=== PATIENT | female | born 1940 | race Caucasian/White ===

== ENCOUNTER 2018-07-25 16:04 | Inpatient (IN) | payer OTHER, MEDICARE ==
[2018-07-25] MEDS ORDERED: ACETAMINOPHEN 500 MG TAB ONE (16:23)
[2018-07-25] MEDS ORDERED: ACETAMINOPHEN 500 MG TAB PO ONE (16:26)
--- NOTE | 2018-07-25 17:12 | EDPHY ---
H & P Time Seen by Provider: 07/25/18 17:02 HPI/ROS: CHIEF COMPLAINT: Cough, shortness of breath, fever HISTORY OF PRESENT ILLNESS: The patient is a 77-year-old female who presents emergency department with multiple complaints including cough, body aches, fever and shortness of breath. Her symptoms started 5 days ago when she was in [place]. She went to urgent care. She was treated with prednisone, benzonatate, and guaifenesin. Patient's symptoms have continued to worsen. She has a productive cough of yellow sputum. She is mildly short of breath. She has diffuse body aches. She is feeling extremely fatigued. She went to urgent care prior to arrival to the emergency department. She was noted to have a temperature at 102 degrees and a low O2 saturation of 85%. REVIEW OF SYSTEMS: 10 systems were reveiwed and are negative with the exception of the elements mentioned in the history of present illness. Past Medical/Surgical History: Includes IBS, sarcoidosis, AST Past surgical history: ASD repair Social history: The patient does not smoke Smoking Status: Never smoked Physical Exam: Vitals noted. Temperature 39.1 degrees. 144/81. 107. 16, 88% on room air GENERAL: Intermittent coughing, alert. HEENT: Eyes normal to inspection, normal pharynx, no signs of dehydration. NECK: Normal, supple. RESPIRATORY: Coarse breath sounds and rales right greater than left. No wheezing. CVS: Tachycardia with regular rhythm, no rubs, murmurs, or gallops. ABDOMEN: Soft, nontender, nondistended, no organomegaly. BACK: Normal to inspection, no CVA tenderness. SKIN: Normal color, no rash, warm, dry. No pallor. EXTREMITIES: No pedal edema, no calf tenderness, no Homans sign or cords, no joint swelling. NEURO/PSYCH: Alert and oriented, normal mood and affect, normal motor sensory exam. No obvious cranial nerve deficit. Constitutional: Initial Vital Signs Temperature (C) 39.1 C H 07/25/18 16:22 Heart Rate 107 H 07/25/18 16:22 Respiratory Rate 16 07/25/18 16:22 Blood Pressure 144/81 H 07/25/18 16:22 O2 Sat (%) 88 L 07/25/18 16:22 O2 Delivery Mode Room Air Allergies/Adverse Reactions: Sulfa (Sulfonamide Antibiotics) Allergy (Intermediate, Verified 07/25/18 16:22) Hives Home Medications: Medication Instructions Recorded Aspirin [Aspirin 81mg (OTC)] 81 mg PO DAILY 12/29/15 L.acidoph,Paracasei, B.lactis 1 each PO 12/29/15 [Probiotic] Loperamide HCl [Imodium] 4 mg PO ONCE 12/29/15 Medical Decision Making - Diagnostics Imaging Results: Imaging Impressions Chest X-Ray 07/25/18 17:15 Impression: Left lower lobe pneumonia versus aspiration. ED Course/Re-evaluation: In the emergency department I discussed possible etiologies with the patient. I answered all her questions. IV was placed. Laboratory studies were obtained. Patient was given normal saline 1L IV for hydration. Patient white count is normal. Chemistry panel is notable for low sodium 131. Low potassium of 3.3. Patient's lactic acid was 1.0. Flu a positive. Chest x-ray: Please refer the dictated report. Left lower lobe infiltrate. I discussed the case with Dr. Thomas from the hospitalist service. He will admit the patient. Patient was given Rocephin and azithromycin. I discussed case with the patient. I answered all her questions. Differential Diagnosis: My differential includes but is not limited to influenza, viral illness, bronchitis, pneumonia, bacteremia, sepsis - Data Points Laboratory Results: Laboratory Results 07/25/18 16:45 07/25/18 16:45 07/25/18 07/25/18 07/25/18 18:05 16:45 16:45 WBC 7.49 10^3/uL 10^3/uL (3.80-9.50) RBC 4.34 10^6/uL 10^6/uL (4.18-5.33) Hgb 13.8 g/dL g/dL (12.6-16.3) Hct 39.8 % % (38.0-47.0) MCV 91.7 fL fL (81.5-99.8) MCH 31.8 pg pg (27.9-34.1) MCHC 34.7 g/dL g/dL (32.4-36.7) RDW 13.4 % % (11.5-15.2) Plt Count 208 10^3/uL 10^3/uL (150-400) MPV 10.5 fL fL (8.7-11.7) Neut % (Auto) 82.7 % H % (39.3-74.2) Lymph % (Auto) 7.5 % L % (15.0-45.0) [place] % (Auto) 9.3 % % (4.5-13.0) Eos % (Auto) 0.0 % L % (0.6-7.6) Baso % (Auto) 0.1 % L % (0.3-1.7) Nucleat RBC Rel Count 0.0 % % (0.0-0.2) Absolute Neuts (auto) 6.19 10^3/uL 10^3/uL (1.70-6.50) Absolute Lymphs (auto) 0.56 10^3/uL L 10^3/uL (1.00-3.00) Absolute Monos (auto) 0.70 10^3/uL 10^3/uL (0.30-0.80) Absolute Eos (auto) 0.00 10^3/uL L 10^3/uL (0.03-0.40) Absolute Basos (auto) 0.01 10^3/uL L 10^3/uL (0.02-0.10) Absolute Nucleated RBC 0.00 10^3/uL 10^3/uL (0-0.01) Immature Gran % 0.4 % % (0.0-1.1) Immature Gran # 0.03 10^3/uL 10^3/uL (0.00-0.10) RBC/WBC/PLT Morphology TNP Platelet Estimate TNP VBG Lactic Acid 1.0 mmol/L mmol/L (0.7-2.1) Sodium 131 mEq/L L mEq/L (135-145) Potassium 3.3 mEq/L L mEq/L (3.5-5.2) Chloride 99 mEq/L mEq/L (97-110) Carbon Dioxide 23 mEq/l mEq/l (22-31) Anion Gap 9 mEq/L mEq/L (6-14) BUN 13 mg/dL mg/dL (7-23) Creatinine 0.6 mg/dL mg/dL (0.6-1.0) Estimated GFR > 60 Glucose 115 mg/dL H mg/dL (70-100) Calcium 8.7 mg/dL mg/dL (8.5-10.4) Total Bilirubin 1.0 mg/dL mg/dL (0.1-1.4) Nasal Influenza A PCR Nasal Influenza B PCR 07/25/18 16:45 WBC RBC Hgb Hct MCV MCH MCHC RDW Plt Count MPV Neut % (Auto) Lymph % (Auto) [place] % (Auto) Eos % (Auto) Baso % (Auto) Nucleat RBC Rel Count Absolute Neuts (auto) Absolute Lymphs (auto) Absolute Monos (auto) Absolute Eos (auto) Absolute Basos (auto) Absolute Nucleated RBC Immature Gran % Immature Gran # RBC/WBC/PLT Morphology Platelet Estimate VBG Lactic Acid Sodium Potassium Chloride Carbon Dioxide Anion Gap BUN Creatinine Estimated GFR Glucose Calcium Total Bilirubin Nasal Influenza A PCR FLU A DETECTED H (NEGATIVE) Nasal Influenza B PCR NEGATIVE FOR FLU B (NEGATIVE) Medications Given: Discontinued Medications Acetaminophen (Tylenol) 1,000 mg PO EDNOW ONE Stop: 07/25/18 16:27 Last Admin: 07/25/18 16:28 Dose: 1,000 mg Sodium Chloride (Ns) 1,000 mls @ 0 mls/hr IV ONCE ONE PRN Reason: Wide Open Stop: 07/25/18 18:09 Last Admin: 07/25/18 18:16 Dose: 1,000 mls Ibuprofen (Motrin) 600 mg PO EDNOW ONE Stop: 07/25/18 18:09 Last Admin: 07/25/18 18:16 Dose: 600 mg Departure - Departure Disposition: [facility] Inpatient Acute Clinical Impression: Left lower lobe consolidation, Influenza A Condition: Good
[2018-07-25 17:33] LABS: PLATELET COUNT 208 10^3/uL (150-400)
[2018-07-25] MEDS ORDERED: IBUPROFEN 600 MG TAB PO ONE (18:08)
[2018-07-25] MEDS ORDERED: NS 1,000 ML IV ONE (18:08)
[2018-07-25] MEDS ORDERED: AZITHROMYCIN IV 500 MG in D5W 250 ML IV ONE (18:22)
[2018-07-25] MEDS ORDERED: POTASSIUM CL 20 MEQ/15 ML UDCUP PO ONE (18:26)
--- NOTE | 2018-07-25 18:44 | PDGENHP ---
History and Physical - Chief Complaint cough/ shortness of breath - History of Present Illness Sandy Morrow is a 77-year-old female with past medical history of sarcoidosis and irritable bowel disease who presented to the ER with complaints of 5 days of shortness of breath and cough. She says that she got back from a trip to [place] today and felt weak dizzy and short of breath. About 5 days ago she thought she was getting a cold. Her symptoms have included a cough productive of white sputum, mild fevers and chills, and pleuritic chest pain. Her symptoms worsened until today she felt bad enough that she needed to go to an urgent care. She went to a local urgent care where she was noted to be 85% on room air and have a fever of 102.5. She was told to come to the emergency room for further evaluation. She denied any sick contacts. She denied any nausea vomiting new lower extremity edema diarrhea dysuria dizziness headaches or other symptoms. History Information - Allergies/Home Medication List Allergies/Adverse Reactions: Sulfa (Sulfonamide Antibiotics) Allergy (Intermediate, Verified 07/25/18 16:22) Hives Home Medications: Aspirin [Aspirin 81mg (OTC)] 81 mg PO DAILY 12/29/15 [Last Taken Unknown] L.acidoph,Paracasei, B.lactis [Probiotic] 1 each PO 12/29/15 [Last Taken Unknown ] Loperamide HCl [Imodium] 4 mg PO ONCE 12/29/15 [Last Taken Unknown] I have personally reviewed and updated: family history, medical history, social history, surgical history - Past Medical History Additional medical history: ibs - Surgical History Reports: cholecystectomy, hysterectomy - Family History Positive for: non-pertinent - Social History Smoking Status: Never smoked Alcohol Use: None Drug Use: None Review of Systems Review of Systems: ROS: 10pt was reviewed & negative except for what was stated in HPI & below Physical Exam Physical Exam: Temp Pulse Resp BP Pulse Ox 37.3 C 99 16 104/60 90 L 07/25/18 18:17 07/25/18 18:17 07/25/18 18:17 07/25/18 18:17 07/25/18 18:17 Constitutional: no apparent distress, appears nourished, not in pain Eyes: PERRL, anicteric sclera, EOMI Ears, Nose, Mouth, Throat: moist mucous membranes, hearing normal, ears appear normal, no oral mucosal ulcers Cardiovascular: regular rate and rhythym, no murmur, rub, or gallop, No edema Respiratory: reduced air movement, expiratory wheeze, inspiratory crackles Gastrointestinal: normoactive bowel sounds, soft, non-tender abdomen, no palpable masses Genitourinary: no bladder fullness, no bladder tenderness Skin: warm, normal color, no rashes or abrasions, no fluctuance, no induration, No mottled Musculoskeletal: full muscle strength, no muscle tenderness, normal joint ROM, no joint effusions Neurologic: AAOx3, CN II-XII Intact Psychiatric: interacting appropriately, not anxious, not encephalopathic, thought process linear Lymph, Heme, Immunologic: no cervical LAD, no supraclavicular LAD Lab Data & Imaging Review 07/25/18 16:45 07/25/18 16:45 WBC 7.49 10^3/uL (3.80-9.50) 07/25/18 16:45 RBC 4.34 10^6/uL (4.18-5.33) 07/25/18 16:45 Hgb 13.8 g/dL (12.6-16.3) 07/25/18 16:45 Hct 39.8 % (38.0-47.0) 07/25/18 16:45 MCV 91.7 fL (81.5-99.8) 07/25/18 16:45 MCH 31.8 pg (27.9-34.1) 07/25/18 16:45 MCHC 34.7 g/dL (32.4-36.7) 07/25/18 16:45 RDW 13.4 % (11.5-15.2) 07/25/18 16:45 Plt Count 208 10^3/uL (150-400) 07/25/18 16:45 MPV 10.5 fL (8.7-11.7) 07/25/18 16:45 Neut % (Auto) 82.7 % (39.3-74.2) H 07/25/18 16:45 Lymph % (Auto) 7.5 % (15.0-45.0) L 07/25/18 16:45 [place] % (Auto) 9.3 % (4.5-13.0) 07/25/18 16:45 Eos % (Auto) 0.0 % (0.6-7.6) L 07/25/18 16:45 Baso % (Auto) 0.1 % (0.3-1.7) L 07/25/18 16:45 Nucleat RBC Rel Count 0.0 % (0.0-0.2) 07/25/18 16:45 Absolute Neuts (auto) 6.19 10^3/uL (1.70-6.50) 07/25/18 16:45 Absolute Lymphs (auto) 0.56 10^3/uL (1.00-3.00) L 07/25/18 16:45 Absolute Monos (auto) 0.70 10^3/uL (0.30-0.80) 07/25/18 16:45 Absolute Eos (auto) 0.00 10^3/uL (0.03-0.40) L 07/25/18 16:45 Absolute Basos (auto) 0.01 10^3/uL (0.02-0.10) L 07/25/18 16:45 Absolute Nucleated RBC 0.00 10^3/uL (0-0.01) 07/25/18 16:45 Immature Gran % 0.4 % (0.0-1.1) 07/25/18 16:45 Immature Gran # 0.03 10^3/uL (0.00-0.10) 07/25/18 16:45 RBC/WBC/PLT Morphology TNP 07/25/18 16:45 Platelet Estimate TNP 07/25/18 16:45 VBG Lactic Acid 1.0 mmol/L (0.7-2.1) 07/25/18 18:05 Sodium 131 mEq/L (135-145) L 07/25/18 16:45 Potassium 3.3 mEq/L (3.5-5.2) L 07/25/18 16:45 Chloride 99 mEq/L (97-110) 07/25/18 16:45 Carbon Dioxide 23 mEq/l (22-31) 07/25/18 16:45 Anion Gap 9 mEq/L (6-14) 07/25/18 16:45 BUN 13 mg/dL (7-23) 07/25/18 16:45 Creatinine 0.6 mg/dL (0.6-1.0) 07/25/18 16:45 Estimated GFR > 60 07/25/18 16:45 Glucose 115 mg/dL (70-100) H 07/25/18 16:45 Calcium 8.7 mg/dL (8.5-10.4) 07/25/18 16:45 Total Bilirubin 1.0 mg/dL (0.1-1.4) 07/25/18 16:45 Nasal Influenza A PCR FLU A DETECTED (NEGATIVE) H 07/25/18 16:45 Nasal Influenza B PCR NEGATIVE FOR FLU B (NEGATIVE) 07/25/18 16:45 Assessment & Plan Assessment: Acute hypoxemic respiratory failure- patient has no history of needing oxygen. Hypoxic to 85% on room air on arrival. Has crackles in left lung and wheezes on expiration. Flu swab positive. Chest x-ray with developing left lung infiltrate. Hypoxemia likely secondary to flu pneumonia in setting of patient with sarcoidosis. Treat underlying pneumonia Oxygen as needed Nebulizers Pneumonia- chest x-ray reviewed shows possible new left lower infiltrate. she is influenza A positive. No leukocytosis but does have a mildly elevated procalcitonin. I discussed the case with the emergency room physician. Patient was given Rocephin and azithromycin in the ER. Tamiflu 75 mg twice daily Oxygen p.r.n. Coco Chow for cough Blood cultures Legionella urinary antigen Strep pneumonia urinary antigen Influenza- examination notable for crackles in left lower lung. Influenza swab positive for flu A Tamiflu 75 twice daily Contact precautions Hyponatremia- patient appears hypovolemic. Suspect hypovolemic hyponatremia. Will give intravenous saline and recheck sodium in the morning Hypokalemia- likely from poor oral intake. Replacement protocol ordered Sarcoidosis- on nothing for this. Does sound wheezy on inspiration. Will give DuoNeb nebulizers Irritable bowel syndrome- p.r.n. Imodium Prophylaxis-SCDs and Lovenox Fluids-intravenous saline Electrolytes-a dressing hyponatremia and hypokalemia Nutrition-regular diet Code status-patient wishes to be full code Disposition-observation for flu pneumonia
[2018-07-25] MEDS ORDERED: PROTOCOL MAGNESIUM 1 DOSE IV PRN (18:52)
[2018-07-25] MEDS ORDERED: ONDANSETRON DISINTEGRATING 4 MG TAB PO PRN (18:52)
[2018-07-25] MEDS ORDERED: PROTOCOL POTASSIUM 1 DOSE MISC PRN (18:52)
[2018-07-25] MEDS ORDERED: ACETAMINOPHEN 325 MG TAB PO PRN (18:52)
[2018-07-25] MEDS ORDERED: PROTOCOL K PHOSPHATE 1 DOSE IV PRN (18:52)
[2018-07-25] MEDS ORDERED: ONDANSETRON 4 MG/2 ML VIAL IVP PRN (18:52)
[2018-07-25] MEDS ORDERED: BENZONATATE 100 MG CAP PO PRN (18:56)
[2018-07-25] MEDS ORDERED: BENZONATATE 100 MG CAP PO ONE (19:39)
[2018-07-25] MEDS: OSELTAMIVIR PHOSPHATE 75 MG CAP PO SCH (20:17)
[2018-07-25] MEDS ORDERED: IPRATROPIUM/ALBUTEROL 3 ML DEYVIAL IH SCH (21:00)
[2018-07-25] MEDS: NS 1,000 ML IV SCH (22:26)
[2018-07-26] MEDS ORDERED: GUAIFENESIN/DM 10 ML UDCUP PO PRN ×2 (04:21→05:36)
[2018-07-26 05:26] LABS: PLATELET COUNT 152 10^3/uL (150-400)
[2018-07-26] MEDS ORDERED: PANTOPRAZOLE SODIUM 40 MG VIAL IVP ONE ×2 (05:34→08:00)
[2018-07-26] MEDS ORDERED: IPRATROPIUM/ALBUTEROL 3 ML DEYVIAL IH PRN (05:36)
[2018-07-26] MEDS ORDERED: MAGNESIUM SULF 1 GM/DEXTROSE 100 ML IV ONE (07:37)
[2018-07-26] MEDS: OSELTAMIVIR PHOSPHATE 75 MG CAP PO SCH ×2 (09:01→17:42)
[2018-07-26] MEDS: ENOXAPARIN 40 MG/0.4 ML SYR SC SCH (09:01)
--- NOTE | 2018-07-26 10:29 | ASMTCMCOM ---
CM Note CM Note Notes: Chart reviewed for discharge planning purposes. 77 year old female admitted via ed with complaints of fever and malaise, normally independent. Has Influenza A and pneumonia. CM to follow for needs. Plan: TBD Date Signed: 07/26/2018 10:29 AM Electronically Signed By:Shaye Saab RN
[2018-07-26] MEDS ORDERED: ZOLPIDEM TARTRATE 5 MG TAB PO PRN (13:33)
--- NOTE | 2018-07-26 13:36 | HOSPPROG ---
Hospitalist Progress Note Assessment/Plan: Acute hypoxemic respiratory failure * better today Pneumonia * procalcitonin only borderline up * most likely fro flu * hold on abx Influenza * tamiflu Hyponatremia- patient appears hypovolemic. Suspect hypovolemic hyponatremia. Will give intravenous saline and recheck sodium in the morning Hypokalemia- likely from poor oral intake. Replacement protocol ordered Sarcoidosis Irritable bowel syndrome- p.r.n. Imodium Prophylaxis-SCDs and Lovenox Code status-patient wishes to be full code Disposition-inpatient Subjective: feels a little better but coughing a lot Objective: Vital Signs Temp Pulse Resp BP Pulse Ox 37.1 C 88 16 110/68 93 07/26/18 12:00 07/26/18 12:00 07/26/18 12:00 07/26/18 12:00 07/26/18 12:00 Laboratory Results 07/26/18 04:40 07/26/18 04:40 07/25/18 07/26/18 07/27/18 05:59 05:59 05:59 Intake Total 2139 Balance 2139 - Physical Exam Constitutional: no apparent distress, appears nourished, not in pain Eyes: anicteric sclera, EOMI Ears, Nose, Mouth, Throat: moist mucous membranes Cardiovascular: regular rate and rhythym Respiratory: rhonchi (madelin right) Neurologic: AAOx3 Psychiatric: interacting appropriately, not anxious, not encephalopathic, thought process linear ICD10 Worksheet Patient Problems: Problems Problem Status Onset Influenza A Acute Left lower lobe consolidation Acute
[2018-07-26] MEDS: guaiFENesin/CODEINE PHOS 10 ML UDCUP PO PRN ×2 (14:19→20:49)
--- NOTE | 2018-07-26 16:12 | PDMN ---
Medical Necessity Medical necessity: [facility] [place] M282 CAP: 77 yo w/ SOB and cough in acute hypoxemic resp fx w/ no hx needing O2, 85% RA. +Infuenza. Dx w/ pneumonia. Initially OBS for workup but cont needing O2, cont need for IV fluids as pt hypovolemic, BC pending. Pt tachycardic this afternoon 110. Meets [facility] [place] IP criteria for CAP for new hypoxemia w/ O2 needs, persistent dehydration requiring ongoing IV fluids. Hx sarcoidosis and IBS. Change to IP status 07/26/18@1336 per MD order
[2018-07-26] MEDS: NS 1,000 ML IV SCH (17:43)
[2018-07-26] MEDS: guaiFENesin 600 MG TAB.ER PO SCH (20:49)
[2018-07-27] MEDS: guaiFENesin 600 MG TAB.ER PO SCH ×2 (08:30→21:13)
[2018-07-27] MEDS: ENOXAPARIN 40 MG/0.4 ML SYR SC SCH (08:30)
[2018-07-27] MEDS: OSELTAMIVIR PHOSPHATE 75 MG CAP PO SCH ×2 (08:30→18:06)
--- NOTE | 2018-07-27 08:51 | HOSPPROG ---
Hospitalist Progress Note Assessment/Plan: Sandy Morrow is a 77-year-old female with past medical history of sarcoidosis and irritable bowel disease who presented to the ER with complaints of 5 days of shortness of breath and cough. First encounter, chart reviewed. *Acute hypoxemic respiratory failure * on room air *Pneumonia (likely viral) * procalcitonin only borderline up * most likely from flu * hold on abx *Influenza * Tamiflu *Hyponatremia- hypovolemic. * resolved *Hypokalemia * resolved *Sarcoidosis *Irritable bowel syndrome- p.r.n. Imodium *plan: she has crackles in her left base; will monitor one more night to assure stability. Subjective: Sandy is tired but feeling better today. Objective: Vital Signs Temp Pulse Resp BP Pulse Ox 36.7 C 90 12 128/75 H 95 07/27/18 08:00 07/27/18 08:00 07/27/18 08:00 07/27/18 08:00 07/27/18 08:00 07/26/18 07/27/18 07/28/18 05:59 05:59 05:59 Intake Total 2600 250 Output Total 1 Balance 2599 250 - Physical Exam Constitutional: no apparent distress, appears nourished, not in pain Eyes: PERRL Ears, Nose, Mouth, Throat: hearing normal Cardiovascular: regular rate and rhythym Respiratory: no respiratory distress, other (crackles left base) Gastrointestinal: normoactive bowel sounds Skin: warm, normal color Musculoskeletal: full muscle strength Neurologic: AAOx3 ICD10 Worksheet Patient Problems: Problems Problem Status Onset Chronic disease Mgmt/Transitional Care Acute Influenza A Acute Left lower lobe consolidation Acute
[2018-07-27] MEDS: guaiFENesin/CODEINE PHOS 10 ML UDCUP PO PRN ×2 (15:09→21:13)
[2018-07-28 07:53] VITALS: BP 135/100
[2018-07-28] MEDS: OSELTAMIVIR PHOSPHATE 75 MG CAP PO SCH (09:28)
[2018-07-28] MEDS: guaiFENesin 600 MG TAB.ER PO SCH (09:29)
[2018-07-28] MEDS: ENOXAPARIN 40 MG/0.4 ML SYR SC SCH (09:30)
--- NOTE | 2018-07-28 13:02 | GDS ---
DISCHARGE DIAGNOSES: 1. Acute hypoxemic respiratory failure. 2. Pneumonia. 3. Influenza. 4. Hyponatremia. 5. Hypokalemia. 6. History of sarcoidosis. 7. History of irritable bowel syndrome. STUDIES AND PROCEDURES DONE: Chest x-ray. PHYSICAL EXAMINATION: GENERAL: The patient is alert. VITAL SIGNS: Afebrile at 36.6, pulse is 82, respiratory rate 14, blood pressure is 135/100. She is saturating 95% on room air. I have seen and evaluated the patient on the day of discharge. HOSPITAL COURSE: The patient is a 77-year-old female who presents with complaints of shortness of br eath and cough. She was evaluated and diagnosed with: 1. Influenza A. during this hospitalization, she was treated with Tamiflu. Her symptoms have signi ficantly improved. 2. Acute hypoxemic respiratory failure. This has resolved in the setting of acute infection. 3. Pneumonia. She did not receive antibiotic therapy during this hospitalization. Her pneumonia wa s felt to be viral secondary to her influenza infection and is improving. 4. Hyponatremia in the setting of hypovolemia. She has responded well to IV fluids and hydration. 5. Hypokalemia. This has resolved. 6. History of irritable bowel syndrome as well as sarcoidosis. These are at baseline. DISPOSITION: She will be discharged home independently. FOLLOWUP: Followup will be with her primary care physician. DISCHARGE MEDICATIONS: Please refer to EMR form. New prescriptions include codeine cough syrup. I have instructed the patient not to take her Ambien with the codeine cough syrup. She understands thi s. There are no pending studies. /[id number]/MODL
--- NOTE | 2018-07-28 14:46 | ASMTLACE ---
ABBIEE Length of stay for Answers: 3 days current admission Acuity / Level of Answers: Yes Care: Did the patient have an inpatient admission? # of Emergency department Answers: 1-2 visits in the last 6 months Score: 7 Date Signed: 07/28/2018 02:46 PM Electronically Signed By:RINKU Magallanes
--- NOTE | 2018-07-28 14:47 | ASMTCMCOM ---
CM Note CM Note Notes: Pt medically stable for d/c no CM d/c needs identified. Date Signed: 07/28/2018 02:46 PM Electronically Signed By:RINKU Magallanes
== END 2018-07-28 13:05 | disposition home or self-care (01) | DRG 193 ==
LOC: F3N 21:04 → OBSVTOIN 07-26 13:36
PROVIDERS: ADMIT Internal Medicine; ATTEND Internal Medicine
DX: J10.08 Influenza due to other identified influenza virus with other specified pneumonia (principal); J96.01 Acute respiratory failure with hypoxia; E87.1 Hypo-osmolality and hyponatremia; E87.6 Hypokalemia; K58.9 Irritable bowel syndrome, unspecified; D86.9 Sarcoidosis, unspecified
CPT/HCPCS: 87449-90; G0378; J0456; J0696; J1650; J3475